=== PATIENT | female | born 1995 | race Two or more races ===

== ENCOUNTER 2020-09-07 00:58 | Emergency (ER) | payer OTHER ==
[~2020-09-07] VITALS: Ht 175.3 cm; Wt 68.0 kg
[2020-09-07 01:03] VITALS: BP 114/66
== END 2020-09-07 01:18 | disposition left against medical advice (07) ==
LOC: ER 01:02
DX: R10.9 Unspecified abdominal pain (principal); Z53.21 Procedure and treatment not carried out due to patient leaving prior to being seen by health care provider